=== PATIENT | male | born 1970 | race Caucasian/White ===

== ENCOUNTER 2020-04-08 18:59 | Emergency (ER) | payer SELFPAY ==
[~2020-04-08] VITALS: Ht 170.2 cm; Wt 72.6 kg
[2020-04-08 19:04] VITALS: Ht 170.2 cm; Wt 72.6 kg
[2020-04-08 22:08] VITALS: BP 118/83
== END 2020-04-08 21:41 | disposition other institution (70) ==
LOC: ED 18:59
DX: S60.412A Abrasion of right middle finger, initial encounter (principal); S00.81XA Abrasion of other part of head, initial encounter; F17.210 Nicotine dependence, cigarettes, uncomplicated; Y04.1XXA Assault by human bite, initial encounter; Y93.89 Activity, other specified; Y92.89 Other specified places as the place of occurrence of the external cause; Y99.8 Other external cause status
CPT/HCPCS: 90715; Q0092

== ENCOUNTER 2020-04-08 18:59 | Emergency (ER) | payer OTHER | END 2020-04-08 21:41 | disposition other institution (70) | LOC: ED 18:59 | DX: Z02.89 Encounter for other administrative examinations (principal) ==